=== PATIENT | female | born 1995 ===

== ENCOUNTER 2017-06-01 01:51 | Emergency (ER) | payer SELFPAY ==
[2017-06-01 06:40] VITALS: BP 112/80
--- NOTE | 2017-06-06 17:35 | ED ---
Kellee Booth Thomas, scribed for Alba Johnson MD on 06/01/17 at 0402 . Substance Abuse/Use - HPI Summary HPI Summary: The patient is a 21 y/o female brought in by ambulance to the emergency department with intoxication. She is responsive to painful stimuli. She vomited several times prior to arrival. LEVEL FIVE CAVEAT: HPI LIMITED DUE TO INTOXICATION - History Of Current Complaint Chief Complaint: EDSubstanceAbuse Stated Complaint: ETOH Time Seen by Provider: 06/01/17 03:00 Hx Obtained From: Patient Ingestion History: Type/Name Of Drug - ETOH, Amount Ingested Overdose Characteristics: Oral Character: Other - Only responsive to painful stimuli Associated Signs And Symptoms: Vomiting PMH/Surg Hx/FS Hx/Imm Hx Previously Healthy: No - LEVEL FIVE CAVEAT: PMH LIMITED DUE TO INTOXICATION Infectious Disease History: No Infectious Disease History: Denies: Traveled Outside the [place] in Last 30 Days - Family History Known Family History: Positive: Other - LEVEL FIVE CAVEAT: FHX LIMITED DUE TO INTOXICATION - Social History Alcohol Use: Occasionally Substance Use Type: Reports: None Smoking Status (MU): Unknown if Ever Smoked Review of Systems - ROS Summary Review of Systems Summary: LEVEL FIVE CAVEAT: ROS LIMITED BY INTOXICATION Positive: Vomiting Neurological: Other - Intoxiation All Other Systems Reviewed And Are Negative: No Physical Exam - Summary Physical Exam Summary: Appearance: She is intoxicated but arousable. She answers few questions. She smells of alcohol and vomit. Skin: Warm, dry, no mottling, no rashes, no contusions HEENT: EOMI, PERRL, moist mucous membranes Neck: No masses on the neck, supple Respiratory: Clear to auscultation, breath sounds present, no rales, no rhonchi , no wheezes Cardiovascular: RRR, pulses are symmetrical in both lower and upper extremities Abdomen: Soft, non-tender Bowel Sounds: Present Musculoskeletal: No CVA tenderness, no obvious deformity, moving all extremities in a grossly normal manner Neurological: She is intoxicated but arousable. She answers few questions LEVEL FIVE CAVEAT: PHYSICAL EXAM LIMITED BY INTOXICATION Triage Information Reviewed: Yes Vital Signs On Initial Exam: Initial Vitals BP 89/57 06/01/17 02:00 Vital Signs Reviewed: Yes - Ivonne Coma Scale Coma Scale Total: 9 Diagnostics - Vital Signs Vital Signs Temp Pulse Resp BP Pulse Ox 06/01/17 03:04 75 100 06/01/17 03:02 82/51 06/01/17 02:53 73 100 06/01/17 02:30 83/50 06/01/17 02:11 77 97 06/01/17 02:05 97.7 F 68 16 96/53 100 06/01/17 02:00 89/57 - Laboratory Lab Results: Lab Results 06/01/17 Range/Units 04:44 Serum Alcohol 152 H (<10) mg/dL Lab Statement: Any lab studies that have been ordered have been reviewed, and results considered in the medical decision making process. Re-Evaluation - Re-Evaluation First Eval Re-Evaluation Time: 06:15 Change: Improved Comment: The patient denies anyone abusing her or hurting her sexually. She denies falling or striking her head. She denies any pain. She denies ear ache, neck pain, CP, SOB, abd pain, edema, anxiety, and depression. She does not smoke or use illicit drugs. Course/Dx - Course Assessment/Plan: On initial examination, the patient is only responsive to a sternal rub. On re-examination, she is awake, alert, ambulatory, and wants to be discharged home. - Diagnoses Provider Diagnoses: Alcohol intoxication Discharge - Discharge Plan Condition: Stable Disposition: HOME Patient Education Materials: Alcohol Intoxication (ED) Referrals: Non Staff,Doctor [Primary Care Provider] - Additional Instructions: drink responsibly. drink plenty of fluids today. return if worse or any new symptoms. follow up with your doctor in 2-3 days. The documentation as recorded by the Kellee norton Thomas accurately reflects the service I personally performed and the decisions made by , Alba Johnson MD.
== END 2017-06-01 06:40 | disposition home or self-care (01) ==
LOC: ED 01:51
DX: F10.129 Alcohol abuse with intoxication, unspecified (principal); R11.10 Vomiting, unspecified; Y90.6 Blood alcohol level of 120-199 mg/100 ml
CPT/HCPCS: 36415; 80320; 99282; G0480